=== PATIENT | female | born 1990 | race Caucasian/White ===

== ENCOUNTER 2017-04-29 17:49 | Emergency (ER) | payer BC, OTHER ==
[2017-04-29 18:40] LABS: Absolute Lymphocytes (CBC) 2.2 K/uL (0.7-4.9); Absolute Monocytes 0.7 K/uL (0.1-1.3); Absolute Neutrophil 7.6 K/uL (1.8-8.0); Basophils % 0.3 % (0-1.3); Eosinophils % 0.9 % (0-4.4); Hematocrit 40.4 % (36.0-45.0); Lymphocytes % 20.6 % (15.3-44.8); MCH 28.2 pg (27.0-35.0); MCV 85.2 fL (80-100); MPV 8.1 fL (7.6-11.3); Monocytes % 6.3 % (3.3-12.3); RBC Red Blood Cell Count 4.74 M/uL (3.86-4.86)
[2017-04-29 18:48] LABS: BUN Blood Urea Nitrogen 8 mg/dL (6-20); Bicarbonate 28 mEq/L (21-31); Glucose Level 103 mg/dL (65-120); Potassium 3.3 mEq/L (3.6-5.0); Sodium Level 139 mEq/L (135-145)
[2017-04-29 19:13] LABS: HCG, Quantitative < 5.0 mIU/mL (<5)
[2017-04-29 19:15] LABS: Urine Blood 3+ (NEG); Urine Glucose NEGATIVE (NEG); Urine Protein NEGATIVE (NEG); Urine Specific Gravity <1.005 (1.005-1.030); Urine pH 5.5 (5.0-7.0)
--- NOTE | 2017-04-29 19:22 | EDPHYS ---
Physician Documentation [facility] Name: Jimena Johnson Age: 27 yrs Sex: Female : 1990 Arrival Date: 04/29/2017 Time: 17:50 Bed 26 Private MD: Juwan Monet P ED Physician Subhash Jnuior HPI: 04/29 18:07 This 27 yrs old Female presents to ER via Unassigned with complaints of kb Vaginal Bleeding, + Preg <12wks. 18:07 The patient presents to the emergency department with vaginal bleeding, that is kb moderate. course: care: private OB physician, Dr. Monet. Previous pregnancies: in previous pregnancies patient has had . Associated signs and symptoms: Pertinent positives: vaginal bleeding, Pertinent negatives: abdominal pain, chest pain, diarrhea, dysuria, fever, frequency, nausea, ruptured membranes, seizure, shortness of breath, vaginal discharge, vomiting. The patient has not experienced similar symptoms in the past. The patient has been recently seen by a physician: Dr. Monet in the office, 4 day(s) ago. Pt states she missed her last period, took several tests last week that were positive, went to [facility] on and had a negative test. Today started having vaginal bleeding, took 2 tests that were negative. States she came to get a "progesterone test or something to see why she is having miscarriages." Had miscarriage at 9 weeks in February. 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 - Social history:: Smoking status: Patient uses tobacco products, smokes one-half pack cigarettes per day. ROS: 18:07 Constitutional: Negative for fever, chills, and weight loss, Cardiovascular: Negative kb for chest pain, palpitations, and edema, Respiratory: Negative for shortness of breath, cough, wheezing, and pleuritic chest pain, Abdomen/GI: Negative for abdominal pain, nausea, vomiting, diarrhea, and constipation, MS/Extremity: Negative for injury and deformity, Skin: Negative for injury, rash, and discoloration, Neuro: Negative for headache, weakness, numbness, tingling, and seizure. 18:07 : Positive for vaginal bleeding. Exam: 18:07 Constitutional: This is a well developed, well nourished patient who is awake, alert, kb and in no acute distress. Head/Face: Normocephalic, atraumatic. Chest/axilla: Normal chest wall appearance and motion. Nontender with no deformity. No lesions are appreciated. Cardiovascular: Regular rate and rhythm with a normal S1 and S2. No gallops, murmurs, or rubs. Normal PMI, no JVD. No pulse deficits. Respiratory: Lungs have equal breath sounds bilaterally, clear to auscultation and percussion. No rales, rhonchi or wheezes noted. No increased work of breathing, no retractions or nasal flaring. Abdomen/GI: Soft, non-tender, with normal bowel sounds. No distension or tympany. No guarding or rebound. No evidence of tenderness throughout. Skin: Warm, dry with normal turgor. Normal color with no rashes, no lesions, and no evidence of cellulitis. MS/ Extremity: Pulses equal, no cyanosis. Neurovascular intact. Full, normal range of motion. Neuro: Awake and alert, GCS 15, oriented to person, place, time, and situation. Cranial nerves II-XII grossly intact. Motor strength 5/5 in all extremities. Sensory grossly intact. Cerebellar exam normal. Normal gait. Vital Signs: 18:08 BP 116 / 74; Pulse 86; Resp 16; Pulse Ox 99% on R/A; Weight 72.57 kg; Height 5 ft. 0 ss in. (152.40 cm); Pain 0/10; 18:09 Temp 97.6; rk2 19:31 BP 109 / 67; Pulse 88; Resp 17; Pulse Ox 99% on R/A; rk2 18:08 Body Mass Index 31.25 (72.57 kg, 152.40 cm) ss MDM: 17:58 Patient medically screened. kb 18:07 Data reviewed: vital signs, nurses notes. Data interpreted: Pulse oximetry: on room air kb is 100 %. Interpretation: normal. 19:21 Counseling: I had a detailed discussion with the patient and/or guardian regarding: the kb historical points, exam findings, and any diagnostic results supporting the discharge/admit diagnosis, lab results, the need for outpatient follow up, an OB/Gyne specialist, to return to the emergency department if symptoms worsen or persist or if there are any questions or concerns that arise at home. 04/29 18:07 Order name: Quantitative Hcg kb 04/29 18:07 Order name: Abo/rh Typing kb 04/29 18:07 Order name: Basic Metabolic Panel kb 04/29 18:07 Order name: CBC with Diff kb 04/29 18:36 Order name: Urine Dipstick--Ancillary (enter results) bd 04/29 18:44 Order name: CBC with Automated Diff; Complete Time: 18:53 EDMS 04/29 18:07 Order name: IV Saline Lock; Complete Time: 18:19 kb 04/29 18:07 Order name: Labs collected and sent; Complete Time: 18:20 kb 04/29 18:48 Order name: Basic Metabolic Panel; Complete Time: 19:14 EDMS 04/29 19:11 Order name: ABO/RH typing; Complete Time: 19:12 EDMS 04/29 19:13 Order name: HCG, Quantitative; Complete Time: 19:14 EDMS 04/29 19:15 Order name: Urine Dipstick-Ancillary; Complete Time: 19:21 EDMS 04/29 18:07 Order name: NPO; Complete Time: 18:39 kb 04/29 18:07 Order name: Urine Dipstick-Ancillary (obtain specimen); Complete Time: 18:40 kb Administered Medications: 19:30 Not Given (Patient Refused): Potassium Chloride 20 mEq PO once rk2 Point of Care Testing: Urine : 18:45 Unable to obtain 2nd to SG low rk2 Disposition: 04/29/17 19:21 Discharged to Home. Impression: Abnormal uterine and vaginal bleeding, unspecified. - Condition is Stable. - Discharge Instructions: Abnormal Uterine Bleeding, [id number]. - Medication Reconciliation Form, Thank You Letter, Antibiotic Education, Prescription Opioid Use form. - Follow up: Emergency Department; When: As needed; Reason: Worsening of condition. Follow up: Juwan Monet MD; When: 2 - 3 days; Reason: Recheck today's complaints, Continuance of care, Re-evaluation by your physician. Addendum: 05/03/2017 07:27 Co-signature as Attending Physician, Subhash Junior MD. g s Signatures: Dispatcher [employer] Paula Olson, NBA-Jeyson ARANGO-Kaylan Dow RN RN ss Subhash Junior MD MD Ness Ordoñez RN RN rk2 Corrections: (The following items were deleted from the chart) 04/29 18:58 18:07 Urine Test ordered. kb rk2
--- NOTE | 2017-04-29 19:22 | ER ---
Nurse's Notes [facility] Name: Jimena Johnson Age: 27 yrs Sex: Female : 1990 Arrival Date: 04/29/2017 Time: 17:50 Bed 26 Private MD: Juwan Monet P Diagnosis: Abnormal uterine and vaginal bleeding, unspecified Presentation: 04/29 18:06 Presenting complaint: Patient states: heavy vaginal bleeding that began at 1200 today. ss Pt reports she had + UPT last week, and two negative tests today. Pt had a miscarriage in February at 9 week gestation. Pt states, "I don't know why this keeps happening, is there something like hormone levels we can check today?". Transition of care: patient was not received from another setting of care. Onset of symptoms was April 29, 2017. Care prior to arrival: None. 18:06 Method Of Arrival: Ambulatory ss 18:06 Acuity: JOVON 3 ss Triage Assessment: 18:45 General: Appears in no apparent distress. well groomed, well developed, well nourished, rk2 Behavior is calm, cooperative. Pain: Complains of pain in lower abd cramping, no pain on palpation. Neuro: Level of Consciousness is alert, obeys commands, Oriented to person, place, time, situation. Respiratory: Airway is patent Respiratory effort is even, unlabored, Respiratory pattern is regular, symmetrical. : Reports vaginal bleeding that is bright red, with clots. Derm: Skin is pink, warm \\T\\ dry. 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 - Social history:: Smoking status: Patient uses tobacco products, smokes one-half pack cigarettes per day. Screenin:44 Abuse screen: Denies threats or abuse. Nutritional screening: No deficits noted. rk2 Tuberculosis screening: No symptoms or risk factors identified. Fall Risk None identified. Assessment: 18:47 Obstetrical Assessment: General assessment: awake and alert. rk2 19:30 Reassessment: Reviewed DC instructions with pt... no prescriptions. Iv removed. Pt. rk2 ambulated out on her own with family \\T\\ side. Vital Signs: 18:08 BP 116 / 74; Pulse 86; Resp 16; Pulse Ox 99% on R/A; Weight 72.57 kg; Height 5 ft. 0 ss in. (152.40 cm); Pain 0/10; 18:09 Temp 97.6; rk2 19:31 BP 109 / 67; Pulse 88; Resp 17; Pulse Ox 99% on R/A; rk2 18:08 Body Mass Index 31.25 (72.57 kg, 152.40 cm) ss Vitals: 19:25 Heart Tones Pt. blood work indicates no . rk2 ED Course: 17:50 Patient arrived in ED. as 17:50 Juwan Monet MD is Private Physician. as 17:50 Paula Kelly FNP-C is [facility]. kb 17:50 Subhash Junior MD is Attending Physician. kb 18:04 Ness Ordoñez, RN is Primary Nurse. rk2 18:08 Triage completed. ss 18:08 Arm band placed on right wrist. ss 18:40 Quantitative Hcg Sent. rk2 18:40 Abo/rh Typing Sent. rk2 18:40 Basic Metabolic Panel Sent. rk2 18:40 CBC with Diff Sent. rk2 18:44 Patient has correct armband on for positive identification. Bed in low position. Call rk2 light in reach. 18:57 Urine Dipstick--Ancillary (enter results) Sent. rk2 19:21 Juwan Monet MD is Referral Physician. kb 19:31 No provider procedures requiring assistance completed. IV discontinued. rk2 Administered Medications: 19:30 Not Given (Patient Refused): Potassium Chloride 20 mEq PO once rk2 Point of Care Testing: Urine : 18:45 Unable to obtain 2nd to SG low rk2 Outcome: 19:21 Discharge ordered by . kb 19:31 Discharged to home ambulatory. rk2 19:31 Condition: good 19:31 Discharge instructions given to patient. 19:33 Patient left the ED. rk2 Signatures: Paula Kelly FNP-C FNP-Ckb Martinez, Amelia as Smirch, Shelby, RN RN [place], Ness, RN RN rk2
[2017-04-29] MEDS ORDERED: POTASSIUM CL SA 10 MEQ TAB PO ONE (19:43)
== END 2017-04-29 19:33 | disposition home or self-care (01) ==
LOC: ER 17:49
DX: N93.9 Abnormal uterine and vaginal bleeding, unspecified (principal); F17.210 Nicotine dependence, cigarettes, uncomplicated
CPT/HCPCS: 36415; 80048; 81003; 84702; 85025; 86900; 86901; 99283

== ENCOUNTER 2018-01-25 01:17 | Inpatient (IN) | payer BC ==
[2018-01-25] MEDS ORDERED: Ringers Lactate 1,000 ML IV PRN (02:01)
[2018-01-25] MEDS ORDERED: FAMOTIDINE 20 MG/2 ML VIAL IV ONE (02:04)
[2018-01-25] MEDS ORDERED: NA CIT/CITRIC AC 30 ML ORAL UDC PO ONE (02:07)
[2018-01-25] MEDS ORDERED: BUTORPHANOL 1 MG/ML INJ IV ONE (02:22)
[2018-01-25] MEDS ORDERED: PROMETHAZINE 25 MG/ML VIAL IV PRN (02:23)
[2018-01-25] MEDS ORDERED: CEFAZOLIN 2GM (PREMIX IV) 2 GM/50 ML BAG ONE (02:36)
[2018-01-25 02:40] LABS: RPR Titer ND
[2018-01-25 02:44] LABS: Absolute Lymphocytes (CBC) 1.7 K/uL (0.7-4.9); Absolute Monocytes 1.1 K/uL (0.1-1.3); Absolute Neutrophil 8.7 K/uL (1.8-8.0); Basophils % 0.4 % (0-1.3); Eosinophils % 0.5 % (0-4.4); Lymphocytes % 14.7 % (15.3-44.8); MPV 9.5 fL (7.6-11.3); Monocytes % 9.8 % (3.3-12.3); RBC Red Blood Cell Count 4.55 M/uL (3.86-4.86)
[2018-01-25] MEDS ORDERED: CEFAZOLIN 1GM (PREMIX IV) 1 GM/50 ML BAG IV SCH (03:00)
[2018-01-25] MEDS ORDERED: METOCLOPRAMIDE 10 MG/2mL INJ IV SCH (03:00)
[2018-01-25] MEDS ORDERED: Ringers Lactate 1,000 ML IV SCH (03:00)
[2018-01-25] MEDS ORDERED: METHYLERGONOVINE 0.2MG/ML AMP IM ONE ×2 (03:16→03:32)
[2018-01-25] MEDS ORDERED: CARBOPROST TROME 250 MCG/ML IM ONE ×2 (03:17→03:31)
[2018-01-25] MEDS ORDERED: MORPHINE SULFATE/PF 1 MG/ML (10 ML AMP) ONE (03:32)
[2018-01-25] MEDS ORDERED: OXYTOCIN 10 UNIT/ML ML IV ONE (03:32)
[2018-01-25] MEDS ORDERED: BUPIVACAINE 0.75% (PF) 2 ML SP ONE (03:37)
[2018-01-25] MEDS ORDERED: LIDOCAINE 1% MPF 5 ML VIAL ONE (03:37)
[2018-01-25] MEDS ORDERED: ONDANSETRON 4 MG/2 ML VIAL ONE (03:56)
[2018-01-25] MEDS ORDERED: OXYTOCIN/LR 20 UNIT/1,000 ML BAG IV ONE (04:01)
[2018-01-25] MEDS ORDERED: MIDAZOLAM HCL 2 MG/2 ML INJ ONE (04:12)
[2018-01-25] MEDS ORDERED: Oxycodone HCl/Acetaminophen 1 TAB TAB PO PRN (04:46)
[2018-01-25] MEDS ORDERED: METHYLERGONOVINE 0.2MG/ML AMP IM PRN (04:46)
[2018-01-25] MEDS ORDERED: ONDANSETRON 4 MG (ODT) TAB PO PRN (04:46)
[2018-01-25] MEDS ORDERED: METHYLERGONOVINE 0.2 MG TAB PO PRN (04:46)
--- NOTE | 2018-01-25 04:46 | PREOPHP ---
Date of Admission: 01/25/2018 History Of Present Illness: Ms. Johnson is a 27-year-old, , female, 3, para _ with 1 delivery and 1 term delivery, who has been followed by me during this pregna ncy with complications of prior sections x2 with single interlock suture closure of the uter us. Because of this, she has been counseled. She has an increased risk of uterine scar separation o f 2 to 4 times the usual risk. Because of this, a trial of labor is not advised. She presents with rupture of membranes in active labor at 37 and 3 weeks. Past Medical History: Please see record. Family History: Please see record. Review of Systems: She denies recent cough, cold, fever, or chills. No recent nausea or vomiting. She denies any breas t lumps or breast knots. Baby has been active. She denies significant vaginal bleeding. She denies any UTI symptoms or bowel or bladder symptoms. Physical Examination: General: Very anxious female. Neck: Supple without adenopathy or thyromegaly. Lungs: Clear. Cardiac: Regular rate and rhythm without murmurs. Breasts: Not examined. Abdomen: 6+ pound estimated weight. Pelvic: Not performed. She is juan manuel approximately every 2 to 3 minutes and gross rupture of m embranes has been confirmed on her initial nursing assessment. Extremities: She has 1+ lower extremity edema. Impression: A 37+ week , prior section x2, spontaneous rupture of membranes, activ e labor. Plan: The patient will be admitted for delivery. STACIE/SANDY Voice ID: [id number]
--- NOTE | 2018-01-25 04:50 | P.BOP ---
Preoperative diagnosis: 37+wk , prior c-sectx2, SROM, labor Postoperative diagnosis: same, viable male infant, Primary procedure: repeat Airplane Flight Attendant Supervisor: Narcisa Perez Estimated blood loss: 1000ml Specimen: placenta Findings: true knot in chord, thinned lower segment "window" Anesthesia: Spinal Complications: None Drain(s): Urinary catheter Transferred to: Other (273) Condition: Good
[2018-01-25] MEDS ORDERED: OXYTOCIN/LR 20 UNIT/1,000 ML BAG IV SCH (05:00)
[2018-01-25 05:27] VITALS: BMI 40.2
[2018-01-25 06:21] VITALS: O2SAT 100
[2018-01-25] MEDS: KETOROLAC 30 MG/ML INJ IV PRN ×2 (16:45→22:37)
[2018-01-25 22:03] LABS: RPR (Rapid Plasma Reagin) NON-REACT (NON-REACT)
[2018-01-26 05:46] LABS: Absolute Lymphocytes (CBC) 1.5 K/uL (0.7-4.9); Absolute Neutrophil 8.6 K/uL (1.8-8.0); Basophils % 0.4 % (0-1.3); Hematocrit 33.4 % (36.0-45.0); Lymphocytes % 13.4 % (15.3-44.8); MPV 8.9 fL (7.6-11.3); Monocytes % 8.9 % (3.3-12.3); RBC Red Blood Cell Count 3.97 M/uL (3.86-4.86)
--- NOTE | 2018-01-26 07:06 | P.PN ---
Date of Service: 01/26/18 S-No complaints O-Afeb, vs stable, incision dry, abdomen soft, not distended A-Satisfactory, ambulate, d/c méndez, IV, advance diet
[2018-01-26] MEDS: KETOROLAC 30 MG/ML INJ IV PRN (07:40)
[2018-01-26] MEDS ORDERED: FLUOXETINE 20 MG CAP PO SCH (09:00)
[2018-01-26] MEDS: Oxycodone HCl/Acetaminophen 1 TAB TAB PO PRN ×2 (15:30→19:57)
[2018-01-26] MEDS: IBUPROFEN 400 MG TAB PO PRN (22:00)
[2018-01-27] MEDS: Oxycodone HCl/Acetaminophen 1 TAB TAB PO PRN (00:13)
[2018-01-27] MEDS: IBUPROFEN 400 MG TAB PO PRN (04:45)
[2018-01-27 09:14] VITALS: BP 132/72; TEMP 96.3
[2018-01-28 03:01] LABS: HBsAG Nonreactive (Nonreactive)
--- NOTE | 2018-01-30 15:12 | OP ---
Surgeon: Juwan Monet MD Preoperative Diagnosis: A 37+ week , spontaneous rupture of membranes, labor, prior cesarea n section x2. Procedure: Spinal block anesthesia, repeat section, delivery of viable male . Postoperative Diagnoses: A 37+ week , spontaneous rupture of membranes, labor, prior aris an section x2. Description Of Procedure: After the patient had received 2 g of Ancef for antibiotic prophylaxis and Khan catheter was placed, spinal block anesthesia was obtained. The patient was prepped and draped in the usual fashion for abdominal surgery. A Pfannenstiel skin incision was made, then carried ritu n to the fascia. The fascia incised with a combination of sharp and blunt dissection. This was sepa rated from the underlying rectus muscles. These were divided in the midline. The peritoneum entered . There is area of thinning in the left portion of the lower uterine segment. A low transverse uter ine incision was made. A 7-pound 8-ounce male , 9 and 9, was delivered in vertex present ation. The cord was clamped, cut, and the placed in a warmer. Cord blood was obtained. Of n ote was a true knot, was noted in the umbilical cord that was loose. The placenta was manually remov ed. The uterus was then exteriorized. The cervix was dilated from above with a ring clamp, which wa s passed from the operative field. The uterine incision was closed in 2 layers of 0 Vicryl in a runn ing interlocking fashion with second layer used to imbricate the first layer. Good hemostasis was no saul. The uterus was returned to peritoneal cavity which was cleaned of amniotic fluid, debris, and b lood clot. The rectus muscles were approximated in midline with simple sutures of 0 Vicryl. The fas venus was closed with running sutures of #1 Vicryl from either margin to the middle. The skin was clos ed with subcutaneous sutures of 3-0 Vicryl, subdermal suture of 3-0 Vicryl, and skin was closed by royal bcuticular suture of 4-0 Monocryl. Estimated total blood loss was less than 1000 cc. Administrative Appeals Tribunal Member Surgeon: Dr. Perez. Anesthesia: Dr. Laguna. Disposition: The patient was taken to recovery room in satisfactory condition with sponge and needle counts correct x2 with SCDs in place. MPG/MODL Voice ID: [id number] Report ID: [id number]
== END 2018-01-27 09:45 | disposition home or self-care (01) | DRG 788 ==
LOC: L&D 01:17 → 2ND-WC 01:59
PROVIDERS: ADMIT Specialist; ATTEND Specialist
PROC: 10D00Z1 Extraction of Products of Conception, Low, Open Approach (ICD-10-PCS; principal; 2018-01-25 03:52)
DX: O34.211 Maternal care for low transverse scar from previous cesarean delivery (principal); N85.8 Other specified noninflammatory disorders of uterus; Z3A.37 37 weeks gestation of pregnancy; Z37.0 Single live birth; O69.82X0 Labor and delivery complicated by other cord entanglement, without compression, not applicable or unspecified
CPT/HCPCS: 36415; 85025; 86592; 86900; 86901; 87340; 88307; 99218; J0595; J0690; J2210; J2250; J2405; J2550; J2590; J2765